=== PATIENT | male | born 1970 | race African-American/Black ===

== ENCOUNTER 2016-10-07 11:20 | Emergency (ER) | payer BC ==
--- NOTE | ~2016-10-07 | EKG ---
PATIENT: DORIS WILL UNIT #: [id number] Ventricular Rate: 69 BPM Atrial Rate: 69 BPM P-R Interval: 162 ms QRS Duration: 84 ms Q-T Interval: 372 ms QTC Calculation(Bezet): 398 ms P Huntley: 65 degrees Calculated R Huntley: 46 degrees Calculated T Huntley: 39 degrees Diagnosis Line: Normal sinus rhythm Diagnosis Line: Normal ECG Diagnosis Line: No previous ECGs available Diagnosis Line: Confirmed by FILIBERTO VILLA MD ([id number]) on Diagnosis Line: 10/07/2016 7:15:19 PM INTERPRETING MD: SHANNAN
--- NOTE | ~2016-10-07 | CR72 ---
[facility] A Service of [facility] RADIOLOGY TEXT RESULTS PATIENT: DORIS WILL LOCATION: [facility] : 66 UNIT #: [id number] AGE: [address]: Hari Adkins MD SEX: M ORDER DR: [id number] [facility]. [place], [place] [address] [id number] MR#: [id number] Acc #: [id number] NAME: DORIS WILL : 1970 SEX: M STUDY DATE/TIME: 10/07/2016 12:01 UNIT: [facility] ROOM: STUDY DESCRIPTION: CR Chest Single View Portable Attending Physician: Hari Adkins M.D. Ordering Physician: Hari Adkins M.D. MEDICAL IMAGING REPORT This report is preliminary unless electronic signature is present EXAM Portable chest HISTORY Chest pain, shortness of breath and cough for 10 weeks. COMPARISON STUDIES None. FINDINGS There is a calcified granuloma in the right base. No acute infiltrate. Heart size is normal. Calcified mediastinal lymph nodes. IMPRESSION No active disease. Dictated by... Ace Pettit M.D. THIS IS AN ELECTRONICALLY VERIFIED REPORT Ace Pettit M.D. at 10/08/2016 7:51 AM ARS/pcl TD: 10/07/2016 15:11 JOB #: [id number] MEDICAL IMAGING REPORT Page 1 of 1 COPY
[2016-10-07 12:29] LABS: BASOPHIL% 1.4 % (0-2.5); EOSINOPHIL# 0.1 X10e3 (0-0.7); EOSINOPHIL% 3.1 % (0.0-7.0); HEMATOCRIT 44.6 % (38.0-50.0); HEMOGLOBIN 14.7 gm/dL (13.0-16.0); MEAN CELL VOLUME 94.2 FL (83-96); MEAN CORPUSCULAR HGB CONC 32.9 g/dL (30-36); MONOCYTE# 0.3 X10e3 (0-1.0); MONOCYTE% 9.3 % (3.0-12.0); NEUTROPHIL# 2.2 X10e3 (1.5-7.1); NEUTROPHIL% 59.2 % (40-75); PLATELET COUNT 285 X10e3 (140-420); RED BLOOD COUNT 4.74 X10e (3.90-5.60); RED CELL DISTRIBUTION WIDTH 13.7 % (11.0-15.5); WHITE BLOOD COUNT 3.6 X10e3 (4.0-10.5)
[2016-10-07 12:31] LABS: DIFF IND NO
[2016-10-07 12:52] LABS: POC - CKMB <1.0 ng/mL (0.0-7.9); POC - TROPONIN <0.05 ng/mL (<=0.05)
[2016-10-07 12:58] LABS: ALBUMIN SERUM 4.2 g/dL (3.5-5.0); BILIRUBIN, DIRECT 0.1 mg/dL (0.0-0.2); BILIRUBIN,INDIRECT 0.4 mg/dL (0.0-0.9); BILIRUBIN,TOTAL 0.5 mg/dL (0.2-2.0); CALCIUM SERUM 8.7 mg/dL (8.4-10.2); GLOM FILT RATE Estimated 102.7 mL/min (>60); POTASSIUM 4.3 mmol/L (3.5-5.1); PROTEIN TOTAL SERUM 7.6 g/dL (6.0-8.3)
== END 2016-10-07 14:17 | disposition home or self-care (01) ==
LOC: CED 11:20
PROVIDERS: Emergency Medicine
DX: R07.89 Other chest pain (principal); I10 Essential (primary) hypertension
CPT/HCPCS: 36415; 71010; 80048; 80076; 82553; 83880; 84484; 85025; 93005; 99285